=== PATIENT | male | born 1960 | race African-American/Black ===

== ENCOUNTER 2019-01-22 20:11 | Inpatient (IN) | payer MEDICAID ==
[~2019-01-22] VITALS: Ht 193 cm; Wt 88.5 kg
[2019-01-22] MEDS ORDERED: FUROSEMIDE 40MG/4ML VIAL IV ONE (21:00)
[2019-01-22] MEDS ORDERED: ASPIRIN 81MG TABLET PO ONE (21:00)
[2019-01-22 21:31] LABS: BASOPHILS % 0.6 % (0.0-2.0); EOSINOPHILS % 0.3 % (0.0-5.0); HEMATOCRIT. 36.1 % (42.0-52.0); HEMOGLOBIN. 12.2 g/dL (14.0-18.0); LYMPHOCYTES % 19.5 % (20.0-50.0); MEAN CORPUSCULAR HEMOGLOBIN 31.3 pg (28.0-32.0); MEAN CORPUSCULAR VOLUME 92.7 fL (80.0-94.0); MEAN PLATELET VOLUME 9.5 fl (7.4-10.4); MONOCYTES % 6.6 % (2.0-8.0); PLATELET 188 x1000/uL (130-400); RED CELL DISTRIBUTION WIDTH 16.3 % (11.6-14.6)
[2019-01-22 21:36] LABS: CHLORIDE 108 mEq/L (98-107)
[2019-01-22 21:40] LABS: ETHANOL BLOOD < 10 mg/dL; INR 1.2; PARTIAL THROMBOPLASTIN TIME 24.7 sec (23.4-31.0); PROTHROMBIN TIME 12.4 sec (9.6-11.0)
[2019-01-23 00:14] LABS: *AMPHETAMINES SCREEN URINE NEGATIVE (NEGATIVE); *BARBITURATES SCREEN URINE NEGATIVE (NEGATIVE); *BENZODIAZEPINES SCREEN URINE NEGATIVE (NEGATIVE); *COCAINE SCREEN URINE NEGATIVE (NEGATIVE); METHADONE URINE SCREEN NEGATIVE (NEGATIVE)
[2019-01-23 00:15] LABS: CANNABINOID URINE SCREEN NEGATIVE (NEGATIVE); OPIATES URINE SCREEN NEGATIVE (NEGATIVE); PHENCYCLIDINE URINE SCREEN NEGATIVE (NEGATIVE)
[2019-01-23] MEDS ORDERED: NITROGLYCERIN OINT 1GM/INCH UDPKT TD ONE (00:30)
[2019-01-23] MEDS ORDERED: FUROSEMIDE 40MG/4ML VIAL IVP ONE (00:45)
[2019-01-23] MEDS ORDERED: POTASSIUM CHLORIDE 20MEQ TABLET SR PO ONE (00:45)
[2019-01-23 10:50] VITALS: BP 141/119
[2019-01-23 12:00] VITALS: BP 164/96
[2019-01-23] MEDS ORDERED: DOCUSATE SODIUM 100MG CAPSULE PO PRN (12:00)
[2019-01-23] MEDS ORDERED: ACETAMINOPHEN 325MG TABLET PO PRN (12:00)
[2019-01-23] MEDS ORDERED: GUAIFENESIN 200MG/10ML SUGAR FREE UDC PO PRN (12:00)
[2019-01-23] MEDS ORDERED: DIPHENHYDRAMINE 50MG/ML VIAL IV PRN (12:00)
[2019-01-23] MEDS ORDERED: HYDROCODONE/ACETAMINOPHEN 5/325MG TABLET PO PRN (12:00)
[2019-01-23] MEDS ORDERED: MAGNESIUM/ALUMINUM HYDROXIDE/SIMETHICONE 30ML UDC PO PRN (12:00)
[2019-01-23] MEDS ORDERED: ONDANSETRON HCL 4MG/2ML INJ IV PRN (12:00)
[2019-01-23] MEDS: BLOOD SUGAR DIAGNOSTIC STRIP TEST SCH ×3 (12:40→21:09)
[2019-01-23] MEDS ORDERED: DEXTROSE 50% WATER 50ML SYRINGE IV PRN (12:45)
[2019-01-23] MEDS: INSULIN LISPRO 100 UNITS/ML SUBCUT SCH ×3 (12:48→21:00)
[2019-01-23] MEDS: IPRATROPIUM/ALBUTEROL 0.5-3(2.5)MG/3ML NEB INH PRN ×2 (12:52→17:04)
[2019-01-23] MEDS ORDERED: ENOXAPARIN 40MG/0.4ML SYR SUBCUT SCH (13:00)
[2019-01-23] MEDS: CLONIDINE 0.1MG TABLET PO PRN (13:06)
[2019-01-23] MEDS: POTASSIUM CHLORIDE 20MEQ TABLET SR PO SCH ×2 (14:56→16:42)
[2019-01-23 15:10] LABS: PHOSPHORUS 3.8 mg/dL (2.5-4.9)
[2019-01-23 15:15] LABS: CREATINE KINASE MB FRACTION 2.3 ng/mL (0.5-3.6)
[2019-01-23 15:45] LABS: CLARITY URINE CLEAR (CLEAR); COLOR URINE YELLOW (YELLOW); KETONES URINE NEGATIVE (NEGATIVE); LEUKOCYTE ESTERASE URINE TRACE (NEGATIVE); NITRITE URINE NEGATIVE (NEGATIVE); OCCULT BLOOD URINE TRACE (NEGATIVE); PROTEIN URINE 2+ (NEGATIVE); SPECIFIC GRAVITY URINE 1.015 (1.005-1.030)
[2019-01-23 15:51] LABS: HEPATITIS B SURFACE ANTIGEN NEGATIVE
[2019-01-23 16:00] VITALS: BP 169/81
[2019-01-23 16:21] LABS: HEPATITIS A AB IGM NEGATIVE (NEGATIVE)
[2019-01-23] MEDS: FUROSEMIDE 100MG/10ML VIAL IVP SCH (16:42)
[2019-01-23] MEDS: IPRATROPIUM BROMIDE (0.02%) 0.5MG/2.5ML NEB HHN SCH ×2 (17:04→20:28)
[2019-01-23 17:50] VITALS: BP 144/107
[2019-01-23 20:00] VITALS: BP 129/89
[2019-01-23] MEDS: CARVEDILOL 12.5MG TABLET PO SCH (21:28)
[2019-01-24] VITALS (7 sets, daily range): BP systolic 108–144; BP diastolic 78–110
[2019-01-24 01:14] LABS: CREATINE KINASE MB FRACTION 2.3 ng/mL (0.5-3.6)
[2019-01-24] MEDS: IPRATROPIUM BROMIDE (0.02%) 0.5MG/2.5ML NEB HHN SCH ×4 (01:57→20:23)
[2019-01-24] MEDS: BLOOD SUGAR DIAGNOSTIC STRIP TEST SCH ×4 (05:50→21:30)
[2019-01-24] MEDS: FUROSEMIDE 100MG/10ML VIAL IVP SCH ×2 (06:02→17:17)
[2019-01-24] MEDS: CLONIDINE 0.1MG TABLET PO PRN (06:02)
[2019-01-24 07:10] LABS: BASOPHILS % 0.5 % (0.0-2.0); HEMATOCRIT. 36.8 % (42.0-52.0); HEMOGLOBIN. 12.2 g/dL (14.0-18.0); LYMPHOCYTES % 24.9 % (20.0-50.0); MEAN CORPUSCULAR HEMOGLOBIN 30.7 pg (28.0-32.0); MEAN CORPUSCULAR VOLUME 92.8 fL (80.0-94.0); MEAN PLATELET VOLUME 9.6 fl (7.4-10.4); MONOCYTES % 6.9 % (2.0-8.0); NEUTROPHILS % 66.7 % (40.0-76.0); PLATELET 193 x1000/uL (130-400); RED BLOOD CELL COUNT 3.97 mill/uL (4.7-6.1); RED CELL DISTRIBUTION WIDTH 16.5 % (11.6-14.6)
[2019-01-24 07:31] LABS: CHLORIDE 106 mEq/L (98-107)
[2019-01-24] MEDS: INSULIN LISPRO 100 UNITS/ML SUBCUT SCH ×4 (07:40→21:00)
[2019-01-24 07:47] LABS: PHOSPHORUS 4.5 mg/dL (2.5-4.9)
[2019-01-24 07:48] LABS: HDL CHOLESTEROL 46 mg/dL (40-59); LDL CHOLESTEROL 80 mg/dL (5-100)
[2019-01-24] MEDS: POTASSIUM CHLORIDE 20MEQ TABLET SR PO SCH ×2 (08:56→17:16)
[2019-01-24] MEDS: LISINOPRIL 5MG TABLET PO SCH (08:56)
[2019-01-24] MEDS: CARVEDILOL 12.5MG TABLET PO SCH ×2 (08:57→21:38)
[2019-01-24] MEDS ORDERED: POTASSIUM CHLORIDE 20MEQ TABLET SR PO SCH (12:00)
[2019-01-24] MEDS: APIXABAN 5 MG TABLET PO SCH ×2 (12:00→21:38)
[2019-01-25] VITALS: BP 109/90
[2019-01-25] MEDS: IPRATROPIUM BROMIDE (0.02%) 0.5MG/2.5ML NEB HHN SCH ×4 (01:08→20:48)
[2019-01-25 04:00] VITALS: BP 135/88
[2019-01-25 05:21] LABS: HIV SCREEN 4G Non Reactive (Non Reactive)
[2019-01-25] MEDS: BLOOD SUGAR DIAGNOSTIC STRIP TEST SCH ×4 (05:44→20:45)
[2019-01-25] MEDS: FUROSEMIDE 100MG/10ML VIAL IVP SCH ×2 (05:49→18:20)
[2019-01-25 07:22] LABS: BASOPHILS % 0.6 % (0.0-2.0); EOSINOPHILS % 1.5 % (0.0-5.0); HEMOGLOBIN. 11.6 g/dL (14.0-18.0); LYMPHOCYTES % 18.2 % (20.0-50.0); MEAN CORPUSCULAR HEMOGLOBIN 30.3 pg (28.0-32.0); MEAN CORPUSCULAR VOLUME 93.7 fL (80.0-94.0); MEAN PLATELET VOLUME 9.9 fl (7.4-10.4); MONOCYTES % 8.1 % (2.0-8.0); NEUTROPHILS % 71.6 % (40.0-76.0); PLATELET 178 x1000/uL (130-400); RED BLOOD CELL COUNT 3.84 mill/uL (4.7-6.1)
[2019-01-25] MEDS: INSULIN LISPRO 100 UNITS/ML SUBCUT SCH ×4 (07:48→20:45)
[2019-01-25 08:00] LABS: PHOSPHORUS 4.3 mg/dL (2.5-4.9)
[2019-01-25] MEDS ORDERED: POTASSIUM CHLORIDE 20MEQ TABLET SR PO SCH (09:30)
[2019-01-25] MEDS: APIXABAN 5 MG TABLET PO SCH ×2 (09:38→18:21)
[2019-01-25] MEDS: POTASSIUM CHLORIDE 20MEQ TABLET SR PO SCH ×3 (09:39→18:19)
[2019-01-25] MEDS: LISINOPRIL 5MG TABLET PO SCH (09:43)
[2019-01-25] MEDS: CARVEDILOL 12.5MG TABLET PO SCH ×2 (09:44→20:45)
[2019-01-25 20:00] VITALS: BP 127/98
[2019-01-25 20:16] VITALS: BP 133/91
[2019-01-26] VITALS: BP 125/82
[2019-01-26] MEDS: IPRATROPIUM BROMIDE (0.02%) 0.5MG/2.5ML NEB HHN SCH ×4 (01:48→21:45)
[2019-01-26 04:00] VITALS: BP 127/98
[2019-01-26] MEDS: FUROSEMIDE 100MG/10ML VIAL IVP SCH ×2 (06:30→19:06)
[2019-01-26 06:33] LABS: BASOPHILS % 0.5 % (0.0-2.0); EOSINOPHILS % 1.4 % (0.0-5.0); HEMATOCRIT. 35.5 % (42.0-52.0); HEMOGLOBIN. 11.8 g/dL (14.0-18.0); LYMPHOCYTES % 24.2 % (20.0-50.0); MEAN CORPUSCULAR HEMOGLOBIN 30.9 pg (28.0-32.0); MEAN PLATELET VOLUME 9.7 fl (7.4-10.4); NEUTROPHILS % 62.9 % (40.0-76.0); PLATELET 202 x1000/uL (130-400); RED BLOOD CELL COUNT 3.82 mill/uL (4.7-6.1); RED CELL DISTRIBUTION WIDTH 16.3 % (11.6-14.6)
[2019-01-26] MEDS: BLOOD SUGAR DIAGNOSTIC STRIP TEST SCH (07:01)
[2019-01-26] MEDS: INSULIN LISPRO 100 UNITS/ML SUBCUT SCH (07:44)
[2019-01-26 08:00] VITALS: BP 126/86
[2019-01-26] MEDS: APIXABAN 5 MG TABLET PO SCH ×2 (10:08→16:56)
[2019-01-26] MEDS: POTASSIUM CHLORIDE 20MEQ TABLET SR PO SCH ×2 (10:09→16:56)
[2019-01-26] MEDS: LISINOPRIL 5MG TABLET PO SCH (10:10)
[2019-01-26] MEDS: CARVEDILOL 12.5MG TABLET PO SCH ×2 (10:10→21:09)
[2019-01-26 16:00] VITALS: BP 124/96
[2019-01-26] MEDS: SPIRONOLACTONE 25MG TABLET PO SCH (16:54)
[2019-01-26 20:00] VITALS: BP 131/84
[2019-01-27] VITALS (7 sets, daily range): BP systolic 110–147; BP diastolic 80–97
[2019-01-27] MEDS: IPRATROPIUM BROMIDE (0.02%) 0.5MG/2.5ML NEB HHN SCH ×4 (03:06→21:19)
[2019-01-27 06:19] LABS: BASOPHILS % 0.4 % (0.0-2.0); EOSINOPHILS % 1.2 % (0.0-5.0); HEMATOCRIT. 35.8 % (42.0-52.0); HEMOGLOBIN. 11.9 g/dL (14.0-18.0); LYMPHOCYTES % 22.9 % (20.0-50.0); MEAN CORPUSCULAR HEMOGLOBIN 30.8 pg (28.0-32.0); MEAN CORPUSCULAR VOLUME 92.4 fL (80.0-94.0); MEAN PLATELET VOLUME 9.5 fl (7.4-10.4); MONOCYTES % 8.7 % (2.0-8.0); NEUTROPHILS % 66.8 % (40.0-76.0); PLATELET 205 x1000/uL (130-400); RED BLOOD CELL COUNT 3.87 mill/uL (4.7-6.1)
[2019-01-27] MEDS: FUROSEMIDE 100MG/10ML VIAL IVP SCH ×2 (06:29→18:51)
[2019-01-27 06:46] LABS: PHOSPHORUS 3.3 mg/dL (2.5-4.9)
[2019-01-27] MEDS: POTASSIUM CHLORIDE 20MEQ TABLET SR PO SCH ×2 (09:05→18:51)
[2019-01-27] MEDS: LISINOPRIL 5MG TABLET PO SCH (09:12)
[2019-01-27] MEDS: SPIRONOLACTONE 25MG TABLET PO SCH ×2 (09:13→16:45)
[2019-01-27] MEDS: CARVEDILOL 12.5MG TABLET PO SCH ×2 (09:13→21:24)
[2019-01-27] MEDS: APIXABAN 5 MG TABLET PO SCH ×2 (09:13→16:43)
[2019-01-27] MEDS ORDERED: POTASSIUM CHLORIDE 20MEQ TABLET SR PO NR (12:15)
[2019-01-28] VITALS: BP 114/64
[2019-01-28] MEDS: IPRATROPIUM BROMIDE (0.02%) 0.5MG/2.5ML NEB HHN SCH ×3 (00:53→14:23)
[2019-01-28 04:00] VITALS: BP 123/92
[2019-01-28 06:27] LABS: BASOPHILS % 0.6 % (0.0-2.0); EOSINOPHILS % 1.1 % (0.0-5.0); HEMOGLOBIN. 11.6 g/dL (14.0-18.0); LYMPHOCYTES % 25.3 % (20.0-50.0); MEAN CORPUSCULAR HEMOGLOBIN 31.2 pg (28.0-32.0); MEAN CORPUSCULAR VOLUME 91.6 fL (80.0-94.0); MEAN PLATELET VOLUME 9.2 fl (7.4-10.4); MONOCYTES % 8.7 % (2.0-8.0); NEUTROPHILS % 64.3 % (40.0-76.0); PLATELET 216 x1000/uL (130-400); RED BLOOD CELL COUNT 3.71 mill/uL (4.7-6.1); RED CELL DISTRIBUTION WIDTH 16.1 % (11.6-14.6)
[2019-01-28 07:15] LABS: PHOSPHORUS 3.1 mg/dL (2.5-4.9)
[2019-01-28 08:00] VITALS: BP 138/101
[2019-01-28] MEDS: FUROSEMIDE 100MG/10ML VIAL IVP SCH (08:22)
[2019-01-28] MEDS: POTASSIUM CHLORIDE 20MEQ TABLET SR PO SCH (08:23)
[2019-01-28] MEDS: SPIRONOLACTONE 25MG TABLET PO SCH (08:23)
[2019-01-28] MEDS: LISINOPRIL 5MG TABLET PO SCH (08:23)
[2019-01-28] MEDS: APIXABAN 5 MG TABLET PO SCH (08:24)
[2019-01-28] MEDS: CARVEDILOL 12.5MG TABLET PO SCH (08:26)
[2019-01-28] MEDS ORDERED: POTASSIUM CHLORIDE 20MEQ TABLET SR PO SCH ×2 (09:45→17:00)
[2019-01-28] MEDS ORDERED: FUROSEMIDE 40MG/4ML VIAL IVP SCH ×2 (09:45→17:00)
[2019-01-28 12:00] VITALS: BP 121/80
[2019-01-28 14:11] VITALS: BP 121/80
== END 2019-01-28 16:18 | disposition home or self-care (01) | DRG 194 ==
LOC: ER 20:11 → 7WST 01-23 00:32 → EDBEDREQDT 01-23 00:34 → EDBEDREQ 01-23 00:34 → EDBEDREQTM 01-23 00:34 → ENRESERV 01-23 09:20
PROVIDERS: ADMIT Internal Medicine; ATTEND Internal Medicine
DX: I13.0 Hypertensive heart and chronic kidney disease with heart failure and stage 1 through stage 4 chronic kidney disease, or unspecified chronic kidney disease (principal); J96.01 Acute respiratory failure with hypoxia; I47.2 Ventricular tachycardia; E44.0 Moderate protein-calorie malnutrition; I48.1 Persistent atrial fibrillation; N17.9 Acute kidney failure, unspecified; I48.2 Chronic atrial fibrillation; I07.1 Rheumatic tricuspid insufficiency; I50.23 Acute on chronic systolic (congestive) heart failure; N18.9 Chronic kidney disease, unspecified; E80.6 Other disorders of bilirubin metabolism; D64.9 Anemia, unspecified; E66.9 Obesity, unspecified; E87.6 Hypokalemia; I48.92 Unspecified atrial flutter; K76.1 Chronic passive congestion of liver; Z79.01 Long term (current) use of anticoagulants; Z82.49 Family history of ischemic heart disease and other diseases of the circulatory system; Z68.23 Body mass index [BMI] 23.0-23.9, adult
CPT/HCPCS: 36415; 71045; 76700; 78582; 80048; 80061; 80076; 80305; 80320; 82248; 82550; 82553; 82962; 83036; 83735; 83880; 84100; 84443; 84484; 86705; 86709; 86803; 87340; 87389; 93005; 93306; 93970; 94640; 96374; 96375; 97116; 97162; 97166; 99285; A9558; J1650; J1940; J7620; G0480